=== PATIENT | female | born 1950 ===

== ENCOUNTER 2016-06-13 19:31 | Emergency (ER) | payer MEDICAID, MEDICARE ==
[2016-06-13 20:19] VITALS: BP 152/108
[2016-06-13 20:57] LABS: Basophils % (Auto) 0.9 % (0.0-1.8); Eosinophils % (Auto) 3.9 % (0.0-4.3); Hematocrit 35.6 % (30.3-42.9); Hemoglobin 11.4 gm/dl (10.1-14.3); Mean Corpuscular HGB Conc 32 % (30-34); Mean Corpuscular Hemoglobin 27 pg (28-32); Mean Corpuscular Volume 83 fl (79-97); Platelet Count 185 K/mm3 (140-440); Red Blood Count 4.28 M/mm3 (3.65-5.03); Red Cell Distribution Width 17.7 % (13.2-15.2); White Blood Count 6.4 K/mm3 (4.5-11.0)
[2016-06-13 21:19] LABS: Alanine Aminotransferase 10 units/L (7-56); Albumin 3.8 g/dL (3.9-5); Albumin/Globulin Ratio 1.9 %; Alkaline Phosphatase 68 units/L (35-129); BUN/Creatinine Ratio 23.33; Bilirubin,Total < 0.2 mg/dL (0.1-1.2); Blood Urea Nitrogen 14 mg/dL (7-17); Calcium 8.5 mg/dL (8.4-10.2); Carbon Dioxide 26 mmol/L (22-30); Chloride 104.2 mmol/L (98-107); Glucose 100 mg/dL (65-100); Potassium 3.9 mmol/L (3.6-5.0); Sodium 143 mmol/L (137-145); Total Protein 5.8 g/dL (6.3-8.2)
[2016-06-13 21:29] LABS: Anion Gap 17 mmol/L
[2016-06-13 23:48] LABS: Mucus,Urine FEW /HPF; WBC,Urine < 1.0 /HPF (0.0-6.0)
[2016-06-14 00:11] LABS: Bilirubin,Urine Negative (Negative); Blood,Urine Moderate (Negative); Ketones,Urine Negative (Negative)
[2016-06-14 00:12] LABS: Leukocyte Esterase,Urine Negative (Negative); Nitrite,Urine Negative (Negative); Protein,Urine <15 mg/dL mg/dL (Negative); Urobilinogen,Urine < 2.0 mg/dL (<2.0)
== END 2016-06-13 22:35 | disposition left against medical advice (07) ==
LOC: ED 19:31
DX: K46.9 Unspecified abdominal hernia without obstruction or gangrene (principal); I63.9 Cerebral infarction, unspecified; K21.9 Gastro-esophageal reflux disease without esophagitis; I10 Essential (primary) hypertension; J44.9 Chronic obstructive pulmonary disease, unspecified; Z88.1 Allergy status to other antibiotic agents; Z88.8 Allergy status to other drugs, medicaments and biological substances; Z88.0 Allergy status to penicillin; Z88.6 Allergy status to analgesic agent; Z91.02 Food additives allergy status; Z53.21 Procedure and treatment not carried out due to patient leaving prior to being seen by health care provider
CPT/HCPCS: 36415; 80053; 81001; 85025

== ENCOUNTER 2016-11-04 08:39 | Emergency (ER) | payer MEDICAID ==
[2016-11-04 08:55] LABS: Hematocrit 45.7 % (30.3-42.9); Hemoglobin 14.5 gm/dl (10.1-14.3); Mean Corpuscular HGB Conc 32 % (30-34); Mean Corpuscular Hemoglobin 27 pg (28-32); Mean Corpuscular Volume 84 fl (79-97); Platelet Count 280 K/mm3 (140-440); Red Blood Count 5.42 M/mm3 (3.65-5.03); Red Cell Distribution Width 16.5 % (13.2-15.2)
[2016-11-04] MEDS ORDERED: CARDENE 50 MG in NACL 0.9% 250ML 230 ML IV SCH (09:00)
[2016-11-04 09:04] LABS: INR 0.99 (0.87-1.13)
[2016-11-04 09:05] LABS: Partial Thromboplastin Time 26.4 Sec. (24.2-36.6)
--- NOTE | 2016-11-04 09:05 | Emergency Department Report ---
HPI - General Chief Complaint: Altered Mental Status Time Seen by Provider: 11/04/16 08:47 - HPI HPI: Room 2 The patient is 66-year-old female presenting with a chief complaint of altered mental status. Per EMS patient's last known well time was "last night." The awakened to find the patient unresponsive this morning and called EMS. Upon arrival to the ED the patient was still found to be unresponsive without a gag reflex subsequently intubated by myself immediately upon arrival using RSI( including lidocaine) Location: Mental state Duration: [see above] Quality: Unresponsive Severity: Severe Modifying factors: [see above] Context: [see above] Mode of transportation: [not driving] ED Past Medical Hx - Past Medical History Hx Hypertension: Yes Hx CVA: Yes Hx Heart Attack/AMI: Yes Hx Congestive Heart Failure: Yes Hx GERD: Yes Hx Renal Disease: Yes Hx COPD: Yes (ON VENT POST OP COLON SURGERY 12/2014) Hx Dementia: Yes Additional medical history: brain aneurysm x 2, diverticulitis - Surgical History Hx Coronary Stent: Yes Hx Pacemaker: Yes Additional Surgical History: brain aneurysm, colostomy, hernia repair - Family History Family history: no significant - Social History Smoking Status: Unknown if ever smoked - Medications Home Medications: Home Medications Medication Instructions Recorded Confirmed Last Taken Type Aspirin [Aspirin BABY CHEW TAB] 81 mg PO QDAY 09/26/14 04/18/16 03/22/15 History Gabapentin 300 mg PO DAILY 09/26/14 04/18/16 03/22/15 History Nitroglycerin [Nitrostat] 0.4 mg SL Q5M PRN 09/26/14 04/18/16 1 Month Ago History Rivastigmine [Exelon Patch 4.6 mg TD DAILY 09/26/14 04/18/16 03/22/15 History 4.6mg/24hr] clonazePAM [KlonoPIN] 1 mg PO TID 09/26/14 04/18/16 03/22/15 History AtorvaSTATin [Lipitor] 10 mg PO DAILY 03/21/15 04/18/16 03/22/15 History amLODIPine [Norvasc] 5 mg PO DAILY 03/21/15 04/18/16 03/23/15 06:00 History Aspirin EC [Aspirin Enteric Coated 81 mg PO QDAY 05/24/15 05/24/15 05/23/15 History TAB] AtorvaSTATin [Lipitor] 10 mg PO DAILY 05/24/15 05/24/15 05/23/15 History Butalb/Acetaminophen/Caffeine 1 tab PO BID 05/24/15 05/24/15 05/23/15 History [Fioricet 50-300-40 mg CAP] Metoprolol [Lopressor TAB] 50 mg PO TID 05/24/15 05/24/15 05/23/15 History Ropinirole HCl 0.5 mg PO QHS 05/24/15 05/24/15 05/23/15 History Sertraline [Zoloft] 25 mg PO QDAY 05/24/15 05/24/15 Unknown History Topiramate [Topamax] 100 mg PO BID 05/24/15 05/24/15 05/23/15 History amLODIPine [Norvasc] 10 mg PO DAILY 05/24/15 05/24/15 05/23/15 History clonazePAM 1 mg PO BID 05/24/15 05/24/15 05/23/15 History Ropinirole HCl 0.5 mg PO TID 01/27/16 04/18/16 Unknown History Ketorolac [Toradol] 10 mg PO Q6H PRN #10 tablet 04/18/16 Unknown Rx ED Review of Systems ROS: Stated complaint: AMS Other details as noted in HPI Comment: Unobtainable due to pts medical conditions Physical Exam - Physical Exam Vital Signs: Vital Signs 11/04/16 08:44 Pulse Rate 185 H Respiratory 8 L Rate Blood Pressure 162/120 O2 Sat by Pulse 85 Oximetry Physical Exam: GENERAL: The patient is well-developed well-nourished female lying on stretcher with nasal trumpet in place unresponsive. [] HEENT: Normocephalic. Atraumatic. Nasal trumpet in place. Dried emesis to the side of mouth. Pupils 4-3 bilaterally NECK: Supple. Trachea midline CHEST/LUNGS: Clear to auscultation. Breath sounds equal bilaterally after intubation by myself HEART/CARDIOVASCULAR: Regular. There is no tachycardia. There is no gallop rub or murmur. ABDOMEN: Abdomen is soft, nontender. Patient has normal bowel sounds. There is no abdominal distention. SKIN: There is no rash. There is no edema. There is no diaphoresis. NEURO: GCS 3T MUSCULOSKELETAL: There is no evidence of acute injury. ED Course Vital Signs 11/04/16 08:44 Pulse Rate 185 H Respiratory 8 L Rate Blood Pressure 162/120 O2 Sat by Pulse 85 Oximetry - Consultations Consultation #1: 11/04/16 09:03 [place] transfer service called- case discussed with neuro spike machine feeder and neurosurgeon. Patient accepted pending bed 11/04/16 09:34 Transfer line recalled for update of CT reading- neurointensivist updated on CT read. Recommends holding mannitol at this time 11/04/16 09:42 ED Medical Decision Making - Lab Data Result diagrams: 11/04/16 08:40 11/04/16 08:40 Laboratory Tests 11/04/16 11/04/16 11/04/16 08:40 08:40 08:40 WBC 21.3 H RBC 5.42 H Hgb 14.5 H Hct 45.7 H MCV 84 MCH 27 L MCHC 32 RDW 16.5 H Plt Count 280 Seg Neutrophils % Evaluator Transfer Students PT 13.0 INR 0.99 APTT 26.4 Sodium 146 H Potassium 3.7 Chloride 101.3 Carbon Dioxide 20 L Anion Gap 28 BUN 13 Creatinine 0.7 Estimated GFR > 60 BUN/Creatinine Ratio 18.57 Glucose 228 H Calcium 9.3 Total Bilirubin 0.40 AST 32 ALT 11 Alkaline Phosphatase 93 Total Creatine Kinase 188 H CK-MB (CK-2) 4.4 H CK-MB (CK-2) Rel Index 2.3 Troponin T 0.033 H Total Protein 7.6 Albumin 4.4 Albumin/Globulin Ratio 1.4 Triglycerides 189 H Cholesterol 274 H LDL Cholesterol Direct 147 H HDL Cholesterol 90 H Cholesterol/HDL Ratio 3.04 - EKG Data -: EKG Interpreted by Me EKG shows normal: sinus rhythm Rate: tachycardia (124 bpm) - EKG Data When compared to previous EKG there are: previous EKG unavailable Interpretation: other (no ischemic changes seen) - Radiology Data Radiology results: report reviewed (CT head), image reviewed (CT head, chest x- ray) interpreted by me: CT head (read by myself)-intraparenchymal hemorrhage cerebellar/occipital with mass effect. No intraventricular hemorrhage seen Chest x-ray-no focal infiltrates, no pneumothorax. ET tube in place CT head (read by radiologist)-findings suggest catastrophic intracranial hemorrhagic and nonhemorrhagic ischemic change possibly hypertensive related with resultant edema or midline shift and obliteration of the prepontine cisterns. Extensive intra-axial bilateral occipital lobe hemorrhagic processes suggesting extensive hemorrhagic infarction with surrounding edematous changes present. Suspect bilateral cerebellar hemispheric nonhemorrhagic ischemia right greater than left. Obliteration of prepontine cisterns with high risk of herniation. Subdural hematoma collections. Midline shift right to left as described. - Differential Diagnosis intracranial hemorrhage, hypertensive emergency Critical care attestation.: If time is entered above; I have spent that time in minutes in the direct care of this critically ill patient, excluding procedure time. ED Disposition Clinical Impression: Intracranial hemorrhage, Hypertensive emergency, Altered mental status Disposition: DC/TX-70 ANOTHER TYPE HLTHCARE Is pt being admited?: Yes Condition: Stable Instructions: Hypertension (ED) Referrals: PRIMARY CARE,MD [Primary Care Provider] - 3-5 Days Time of Disposition: 09:35 (awaiting transport) Blank Doc - Documentation Documentation: The patient was intubated via orotracheal route using a 7.0 mm endotracheal tube. Rapid sequence induction was used protheses utilizing lidocaine 100 mg IV , succinylcholine 100 mg IV, etomidate 20 mg IV). Positioning was confirmed using auscultation and CO2 detector. Post intubation chest xray was ordered.
[2016-11-04] MEDS ORDERED: KEPPRA 1,000 MG/NS 0.75% 100ML 1,000 MG/100 ML BAG IV ONE (09:08)
[2016-11-04 09:13] LABS: Creatine Kinase MB 4.4 ng/mL (0.0-4.0)
[2016-11-04 09:15] LABS: Alanine Aminotransferase 11 units/L (7-56); Albumin 4.4 g/dL (3.9-5); Albumin/Globulin Ratio 1.4 %; Alkaline Phosphatase 93 units/L (35-129); Anion Gap 28 mmol/L; BUN/Creatinine Ratio 18.57; Blood Urea Nitrogen 13 mg/dL (7-17); Calcium 9.3 mg/dL (8.4-10.2); Carbon Dioxide 20 mmol/L (22-30); Chloride 101.3 mmol/L (98-107); Creatine Kinase 188 units/L (30-135); Glucose 228 mg/dL (65-100); Potassium 3.7 mmol/L (3.6-5.0); Sodium 146 mmol/L (137-145); Total Protein 7.6 g/dL (6.3-8.2)
--- NOTE | 2016-11-04 09:15 | Cat Scan Report ---
FINAL REPORT PROCEDURE: CT HEAD/BRAIN WO CON TECHNIQUE: Computerized tomography of the head was performed without contrast material. HISTORY: unresponsive COMPARISON: 01/26/2016 FINDINGS: Intubated. Extensive acute intracranial hemorrhage is seen within the parenchyma of the occipital lobes bilaterally with surrounding hu hemorrhagic edema. The hemorrhage appears to be intra-axial involving each occipital lobe with largest areas measuring in the 5.3 x 3.8 centimeter range on the right 4.3 x 3.5 centimeters on left but with widespread involvement of the occipital lobes larger than these measurements.. There are contiguous areas of acute bleed inferior and superior slightly greater on the right than left superiorly bilateral occipital lobes. There is acute subdural hematoma collections along the tentorium measuring up to 6 millimeters. Posterior parafalcine subdural hematoma in the 6 millimeter range also seen. There is obliteration of the pre pontine cisterns placed in this patient high risk for herniation. Areas of low attenuation in the posterior fossa in the 3 x 6 centimeter range on the right and 4 x 2 centimeters on the left part of which could be artifact however cerebellar hemispheric infarctions, nonhemorrhagic suspected and is the diagnosis of exclusion. Small amounts of hemorrhage seen punctate petechial bleed in the right anterior temporal lobe. There is small subdural hematoma left lateral temporal brain measuring up to 5 millimeters. 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 Subdural hematoma collection along the upper falcine areas high parietal region measures up to 4 millimeters. There is diffuse brain edema with near complete obliteration of the sulcal spaces relative to the prior study in this patient that demonstrated mild to moderate atrophy on the prior examination and with moderate periventricular microischemic change and lacunar disease previously. There is midline shift right to left of 5 millimeters. Ventricles are moderately decompressed due to the edema. Small amount of hemorrhage not excludable around the [place] versus high atherosclerotic vessels compressed by the surrounding edema. Close followup is advised. MRI/MRA may be of use. IMPRESSION: Findings suggest catastrophic intracranial hemorrhagic and nonhemorrhagic ischemic change possibly hypertensive related with resultant edema midline shift and obliteration of pre pontine cisterns as below. Extensive intra-axial bilateral occipital lobe hemorrhagic processes suggesting extensive hemorrhagic infarction with surrounding edematous changes present. Suspect bilateral cerebellar hemispheric nonhemorrhagic ischemia right greater than left. Obliteration of pre pontine cisterns with high risk of herniation. Subdural hematoma collections as described. Midline shift right to left as described. Report called to nurse Ave Begum RN at 8:58 a.m. 11/04/2016 [facility] for transfer of this critically ill patient with very serious intracranial pathology
[2016-11-04 09:25] LABS: Cholesterol 274 mg/dL (50-199); HDL Cholesterol 90 mg/dL (40-59); LDL Cholesterol,Direct 147 mg/dL (50-130); Triglycerides 189 mg/dL (2-149)
[2016-11-04] MEDS ORDERED: OSMITROL 20% IV ONE (09:29)
[2016-11-04 09:30] LABS: White Blood Count 21.3 K/mm3 (4.5-11.0)
[2016-11-04 09:31] VITALS: BP 189/116
--- NOTE | 2016-11-04 09:36 | XRay Report ---
FINAL REPORT EXAM: XR CHEST 1V AP HISTORY: unresponsive, status post intubation TECHNIQUE: Single frontal view of the chest. PRIORS: None FINDINGS: Endotracheal tube tip 4.9 cm above the gutierrez. NG tube tip is below the GE junction. Bipolar pacemaker noted. Normal heart size. Lungs are hyperinflated. Right costophrenic angle was not included. IMPRESSION: 1. Tubes and lines as described. Hyperinflation.
[2016-11-04 10:47] LABS: Basophils % (Manual) 0 % (0.0-1.8); Blastocytes % (Manual) 0 %; Eosinophils % (Manual) 0 % (0.0-4.3)
[2016-11-04 10:48] LABS: Diff Status Complete; RBC Morphology Normal
[2016-11-04] MEDS ORDERED: QUELICIN ONE (10:58)
[2016-11-04] MEDS ORDERED: AMIDATE IV ONE (10:58)
[2016-11-04] MEDS ORDERED: XYLOCAINE CARDIAC IV ONE (10:58)
== END 2016-11-04 10:02 | disposition other institution (70) ==
LOC: ED 08:39
DX: I62.9 Nontraumatic intracranial hemorrhage, unspecified (principal); I10 Essential (primary) hypertension; R41.82 Altered mental status, unspecified; I63.9 Cerebral infarction, unspecified; K21.9 Gastro-esophageal reflux disease without esophagitis; I25.2 Old myocardial infarction; J44.9 Chronic obstructive pulmonary disease, unspecified; K57.92 Diverticulitis of intestine, part unspecified, without perforation or abscess without bleeding; Z79.82 Long term (current) use of aspirin
CPT/HCPCS: 31500; 36415; 51702; 70450; 71010; 80053; 80061; 82550; 82553; 84439; 84443; 84484; 85007; 85025; 85610; 85730; 93005; 93010; 96365; 96368; 99285; J0330; J1953; J2001; J7050; 94002